=== PATIENT | male | born 1945 | race Caucasian/White ===

== ENCOUNTER → 2017-01-02 | Day surgery (SDC) | payer OTHER ==
[~2017-01-02] VITALS: Ht 188 cm; Wt 126.5 kg
[2017-01-02 06:49] VITALS: BP 140/92
[2017-01-02 10:52] VITALS: BP 143/63
== END | disposition home or self-care (01) ==
LOC: DS 06:03 → OR 07:30 → DS 07:30
PROVIDERS: Ophthalmology
PROC: 08RK3JZ Replacement of Left Lens with Synthetic Substitute, Percutaneous Approach (ICD-10-PCS; principal; 2017-01-02 07:30)
DX: H25.012 Cortical age-related cataract, left eye (principal); I10 Essential (primary) hypertension; M19.90 Unspecified osteoarthritis, unspecified site; E66.9 Obesity, unspecified; Z68.35 Body mass index [BMI] 35.0-35.9, adult; Z96.651 Presence of right artificial knee joint
CPT/HCPCS: C1780; J2001; J3010; J3490

== ENCOUNTER 2017-07-14 05:39 | Inpatient (IN) | payer OTHER ==
[~2017-07-14] VITALS: Ht 188 cm; Wt 127.0 kg
[2017-07-14 05:57] VITALS: BP 156/89
--- NOTE | 2017-07-14 14:08 | NUR ---
PT BROUGHT FROM OR. A/OX4. NO SIGN OF ACUTE DISTRESS. REPORT OF PAIN 10/10 IN LEFT KNEE, SHARP, CONTINUOUS, AGGRAVATED BY MOVEMENT. GIVEN PAIN MED, SEE MAR. SURGICAL INCISION TO LEFT KNEE COVERED BY CURLICS, GAUZE, AND PHIL BANDAGE, CDI, NO DRAINAGE. HEMOVAC TO LEFT KNEE WITHOUT SUCTION WITH 100 ML BLOODY DRAINAGE. S1S2 REGULAR RATE/RHYTHM ON TELE #34 NSR. PULSES +2 BUE/BLE, CAP REFILLS <3 SEC BUE/BLE, NO EDEMA. LUNG SOUNDS CTA ON 2LNC. CHEST EXPANSION SYMMETRICAL. NO COMPLAINTS OF SOB. BOWEL SOFT ROUND, NON-DISTENDED. BOWEL SOUNDS ACTIVE. SCHREIBER CATHETER INTACT, DRAINING CLEAR YELLOW URINE. IV FLUIDS FLOWING. BED IN LOW POSITION. FAMILY AT BEDSIDE. WILL CONTINUE TO MONITOR.
[2017-07-14] MEDS ORDERED: LOSARTAN POTASS25 M1 PO (14:29)
--- NOTE | 2017-07-14 14:47 | NUR ---
P.T. NOTES CPM APPLIED ON PATIENT SET AT 0 TO 60DEG, BONNIE DOUGLASS MADE AWARE AND TO REMOVE UNIT AT 2300. PATIENT MADE AWARE OF REMOTE CONTROL USE AND SAFETY. HE TOLERATED FIRST FEW REPS WITH NO SIGNFICANT C/O INCREASED PAIN. CPM SET UP.
[2017-07-14 15:11] VITALS: BP 160/71
[2017-07-14 15:24] LABS: BASOPHIL % 0.2 % (0-2); RED CELL DISTRIBUTION WIDTH 13.1 % (11.5-14.5)
[2017-07-14 15:39] LABS: CALCIUM 8.3 mg/dL (8.5-10.1); CARBON DIOXIDE 28.7 mmol/L (21-32); CHLORIDE SERUM 105 mmol/L (98-107); CREATININE SERUM 1.1 mg/dL (0.7-1.3); GLUCOSE SERUM 151 mg/dL (74-106); SODIUM SERUM 140 mmol/L (136-145)
[2017-07-14 15:40] LABS: microscopic required? YES; urine erythrocyte NEGATIVE (NEGATIVE)
[2017-07-14 15:48] LABS: PLATELET COUNT 129 x10^3mcL (130-400)
[2017-07-14 15:49] LABS: AMPHETAMINE QUAL UR NONE DETECTED (NEG <=1000)
[2017-07-14 15:53] LABS: CHOLESTEROL/HDL RATIO 4.3; MAGNESIUM 1.8 mg/dL (1.8-2.4); PHOSPHOROUS 3.6 mg/dL (2.5-4.9)
[2017-07-14 15:56] LABS: FREE T4 1.4 ng/dL (0.76-1.46); FREE THYROXINE INDEX 3.5 ug/dL (1.4-4.5); T4(THYROXINE) 8.9 ug/dL (4.7-13.3)
[2017-07-14 16:01] LABS: T3 TOTAL 1.27 ng/mL
[2017-07-14 17:41] VITALS: BP 149/75
--- NOTE | 2017-07-14 18:30 | NUR ---
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 PT ASYMPTOMATIC. DR. MOY NOTIFIED. WILL CONTINUE TO MONITOR.
--- NOTE | 2017-07-14 18:38 | NUR ---
PT LAYING IN BED. A/OX4. EATING DINNER. GIVEN PAIN MED FOR PAIN IN LEFT KNEE. SEE OCT. NO SIGN OF ACUTE DISTRESS. SANGUINOUS DRAINAGE TO HEMOVAC WITH OUTPUT 225ML. DRESSING TO INCISION CDI. CPM RUNNING. IV FLUIDS FLOWING. NO REPORT OF CHEST PAIN. BED IN LOW POSITION. CALL LIGHT WITHIN REACH. WILL CONTINUE TO MONITOR.
--- NOTE | 2017-07-14 19:06 | NUR ---
AOX4. FAMILY AT BEDSIDE. TELE #24, SINUS AIYANA WITH SECOND DEGREE AVB. LUNGS CLEAR AND UNLABORED ON NC @ 2L. PULSES PALPABLE, NO EDEMA. BOWEL SOUNDS ACTIVE. SCHREIBER PRESENT DRAINING CLEAR YELLOW. CPM @ 60 DEGREES TO LEFT LEG, WILL REMOVE AT 2300. INCISION TO LEFT KNEE COVERED BY PHIL WRAP. HEMO VAC PRESENT DRAINING SANGUINEOUS FLUID. NS @ 100 ML/HR TO RIGHT FA, NO REDNESS OR SWELLING. BED IN LOW POSITION, CALL LIGHT IN REACH. INSTRUCTED TO CALL FOR ASSISTANCE.
[2017-07-14 22:23] VITALS: BP 117/57
--- NOTE | 2017-07-15 03:45 | NUR ---
RESTING WITH EYES CLOSED. AWAKENS EASILY TO VERBAL STIMULI. NO ACUTE DISTRESS NOTED. WILL CONTINUE TO MONITOR.
[2017-07-15 05:05] VITALS: BP 122/53
--- NOTE | 2017-07-15 06:09 | NUR ---
NO ACUTE CHANGES DURING SHIFT. WILL ENDORSE TO ONCOMING RN.
--- NOTE | 2017-07-15 07:20 | NUR ---
RECEIVED PT IN NO ACUTE DISTRESS. RESP EVEN AND UNLABORED ON 2L NC. NO SOB NOTED. C/O DISCOMFORT L KNEE BUT TOLERABLE. DRESSING AND PHIL WRAP TO L KNEE C/D/I. PULSES PALPABLE ON ALL EXTREMITIES. PT ABLE TO WIGGLE TOES, SENSATION INTACT. IVF INFUSING. SCHREIBER CATH DRAINING YELLOW URINE TO GRAVITY. HEMOVAC DRAINING SANGUINEOUS OUTPUT, 275 ML OUT. BED IN LOW POSITION, CALL LIGHT WITHIN REACH. WILL CONTINUE TO MONITOR.
[2017-07-15 08:04] LABS: BASOPHIL % 0.2 % (0-2); RED CELL DISTRIBUTION WIDTH 13.3 % (11.5-14.5)
[2017-07-15 08:10] LABS: CALCIUM 7.9 mg/dL (8.5-10.1); CARBON DIOXIDE 27.2 mmol/L (21-32); CHLORIDE SERUM 105 mmol/L (98-107); CREATININE SERUM 1.4 mg/dL (0.7-1.3); GLUCOSE SERUM 115 mg/dL (74-106); MAGNESIUM 1.8 mg/dL (1.8-2.4); PHOSPHOROUS 3.9 mg/dL (2.5-4.9); POTASSIUM SERUM 4.9 mmol/L (3.5-5.1); SODIUM SERUM 138 mmol/L (136-145)
[2017-07-15 08:13] LABS: PLATELET COUNT 118 x10^3mcL (130-400)
[2017-07-15 08:36] VITALS: BP 126/66
[2017-07-15 10:25] VITALS: BP 122/46
--- NOTE | 2017-07-15 11:31 | NUR ---
PT SITTING UP IN RECLINER CHAIR. NO ACUTE DISTRESS. C/O MILD L KNEE DISCOMFORT BUT TOLERABLE AT THIS TIME. IVF INFUSING. FAMILY AT BEDSIDE. WILL CONTINUE TO MONITOR.
[2017-07-15 14:00] VITALS: BP 105/42
--- NOTE | 2017-07-15 15:34 | NUR ---
PHYSICAL THERAPY DAILY NOTES CO-SIGN All documentation done by the Professor Of Art History for 07/15/17 has been reviewed. I agree with the documentation. I CONCUR W/GAS SPECIALIST; CONT PER TX PLAN Reviewed/Co-Signed by: Michell Meneses V PT Documentation Done by: DEBORA TRUONG GAS SPECIALIST
--- NOTE | 2017-07-15 15:38 | NUR ---
HEMOVAC REMOVED BY DR. ANTHONY.
[2017-07-15 18:27] VITALS: BP 116/45
--- NOTE | 2017-07-15 18:44 | NUR ---
SCHREIBER CATHETER DC'D ORDERED, CATHETER TIP INTACT. PT TOLERATED WELL. IV TO RFA INFILTRATED, DC'D INTACT. NEW IV STARTED ON RFA 20G. BED IN LOW POSITION, CALL LIGHT WITHIN REACH. FAMILY AT BEDSIDE. WILL ENDORSE TO INCOMING SHIFT.
--- NOTE | 2017-07-15 20:00 | NUR ---
RECEIVED PT IN BED, ALERT AND ORIENTED. RESP. EVEN AND UNLABORED. LUNGS SOUNDS CLEAR BILAT. 02 AT 2L/MIN VIA NC, SAT. WELL. NO DISTRESS NOTED. SB /SR WITH 2DEGREE AVB ON THE MONITOR,DENIES CHEST PAIN OR PRESSURE. LT KNEE INCISION WITH PHIL WRAP, DRY AND INTACT. WITH CPM AT 70 DEGREE, MAVIS. WELL. ABLE TO MOVE EXTS. PEDAL PULSES TO BLE PALPABLE. IVF, NS AT 100ML/HR, INTACT AND INFUSING VIA RFA, SITE CLEAR. ASSISTED WITH HS CARE. CALL LIGHT WITHIN REACH. WILL CONTINUE TO MONITOR.
--- NOTE | 2017-07-15 21:30 | NUR ---
COMPLAINING OF LT KNEE PAIN, 03/10 , MEDICATED WITH DILAUDID 1MG IV ORDERED. WILL CONTINUE TO MONITOR.
[2017-07-15 21:32] VITALS: BP 96/54
--- NOTE | 2017-07-15 22:36 | NUR ---
TEMP. SHOWS 100.6, COOLING MEASURES APPLIED, TYLENOL 650MG PO GIVEN . WILL CONTINUE TO MONITOR.
--- NOTE | 2017-07-15 22:41 | NUR ---
PT STATES PAIN RELIEF. RESTING QUIETLY. WILL CONTINUE TO MONITOR.
--- NOTE | 2017-07-16 01:24 | NUR ---
CPM MACHINE REMOVED FROM PT AT 2300 PER REPORT. LT KNEE SUPPORTED WITH PILLOWS. KEPT COMFORTABLE. NEW IV SITE RESTARTED ON RT HAND WITH 22G ANGIO. IVF INFUSING AT THIS TIME. AFEBRILE. TEMP RECHECK SHOWS 98.9. WILL CONTINUE TO MONITOR.
--- NOTE | 2017-07-16 02:40 | NUR ---
COMPLAINED OF LT KNEE INCISION PAIN, 6/10, MEDICATED WITH NORCO PO ORDERED. WILL CONTINUE TO MONITOR.
--- NOTE | 2017-07-16 06:33 | NUR ---
AFEBRILE AND VITAL SIGNS STABLE. SR ON THE MONITOR, DENIES CP OR ANY DISCOMFORT AT THIS TIME.RESP. EVEN AND UNLABORED. NO DISTRESS NOTED. IVF INTACT AND INFUSING WELL, SITE CLEAR. LT KNEE DRESSING DRY AND INTACT. NO COMPLAINTS OF PAIN NOTED AT THIS TIME. VOIDING FREELY VIA URINAL. NO BM NOTED. WILL ENDORSE TO INCOMING NURSE.
[2017-07-16 06:34] VITALS: BP 126/54
[2017-07-16 06:58] LABS: ALKALINE PHOSPHATASE 70 U/L (46-116); ALT/SGPT 18 U/L (16-63); AST/SGOT 16 U/L (15-37); BILIRUBIN TOTAL 0.9 mg/dL (0.20-1.00); CALCIUM 7.6 mg/dL (8.5-10.1); CHLORIDE SERUM 106 mmol/L (98-107); CREATININE SERUM 1.3 mg/dL (0.7-1.3); GLUCOSE SERUM 118 mg/dL (74-106); PHOSPHOROUS 2.3 mg/dL (2.5-4.9); POTASSIUM SERUM 4.3 mmol/L (3.5-5.1); SODIUM SERUM 139 mmol/L (136-145)
[2017-07-16 06:59] LABS: ALBUMIN 2.6 g/dL (3.4-5.0); TOTAL PROTEIN, SERUM 5.8 g/dL (6.4-8.2)
[2017-07-16 07:23] LABS: RED CELL DISTRIBUTION WIDTH 12.4 % (11.5-14.5)
[2017-07-16 07:25] LABS: PLATELET COUNT 104 x10^3mcL (130-400)
--- NOTE | 2017-07-16 07:42 | NUR ---
AT 0710 - RECEIVED PATIENT FROM NIGHT NURSE. PATIENT SLEEPING. RESPIRATIONS REGULAR. MONITOR SHOWING SINUS BRADYCARDIA; RATE 50'S. IV INFUSING NS AT 100ML/HR. DRESSING TO L KNEE - DRY AND INTACT. CPM MACHINE OFF AT THIS TIME. CONTINUING TO MONITOR.
[2017-07-16 08:37] VITALS: BP 119/59
--- NOTE | 2017-07-16 09:06 | NUR ---
AT 0835 - SEEN BY DR SUTHERLAND DURING MORNING ROUNDS. MEDICAL TEAM DOCTORS, TOMÁS BRAXTON AND MYSELF PRIMARY NURSE ALSO PRESENT. DR SUTHERLAND SPOKE WITH PATIENT ABOUT PLAN OF CARE. ALSO SPOKE WITH PATIENT ABOUT PLAN UPON DISCHARGE - HOME HEALTH. DC DAY TO BE DETERMINED BY DR ANTHONY. AT 0845 - MEDICATED WITH NORCO PER EMAR. CPM MACHINE OFF AT THIS TIME. SPOKE WITH PHYSICAL THERAPY - THEY WILL RESTART MACHINE AFTER PHYSICAL THERAPY THIS MORNING. PATIENT ENCOURAGED TO USE INSENTIVE SPIROMETER.
--- NOTE | 2017-07-16 10:39 | NUR ---
PATIENT REPORTS THAT NORCO ADMINISTERED EARLIER HAS NOT BEEN EFFECTIVE IN RELEIVING PAIN IN L KNEE. NOW GIVEN IV DILAUDID PER EMAR, PRIOR TO PHYSICAL THERAPY. PATIENT STATUS CHANGED TO MED-SURG AND PATIENT TAKEN OFF CARDIAC MONITORING.
[2017-07-16 11:16] LABS: BAND NEUTROPHIL 3 % (0-10); BASOPHIL 0 % (0-2); MONOCYTE 6 % (0-7); SEGMENTED NEUTROPHILS 78 % (37-75)
--- NOTE | 2017-07-16 13:39 | NUR ---
PATIENT BACK IN BED. HAS ALSO AMBULATED WITH PT USING WALKER. NO C/O PAIN AT THIS TIME.
--- NOTE | 2017-07-16 16:10 | NUR ---
AT 1410 - SEEN BY DR ANTHONY. DRESSING CHANGED BY DR. Becerra KNEE INCISION WITH JUDITH COVERED WITH GAUZE AND WRAPPED IN PHIL BANDAGE. PATIENT MAY BE DISCHARGED HOME TOMORROW. WILL NEED CPM FOR 2 WEEKS AT HOME. AT 1515 - CPM SET UP TO L KNEE BY PT. FLEXION AT 80.
[2017-07-16 17:07] VITALS: BP 132/56
--- NOTE | 2017-07-16 17:40 | NUR ---
TEMP 100.1 PATIENT GIVEN TYLANOL PER EMAR. DR NOE NOTIFIED.
--- NOTE | 2017-07-16 18:26 | NUR ---
PATIENT TOLERATING CPM. IV INFUSING NS AT 100ML/HR. VOIDING IN URINAL. EATING WELL. PAIN APPEARS UNDER CONTROL AT THIS TIME. WILL ENDORSE CARE TO NIGHT NURSE.
--- NOTE | 2017-07-16 19:30 | NUR ---
PT FOUND IN BED, AAO X4, VERBALLY RESPONSIVE. LUNGS BILATERALLY CLEAR, NO C/O SOB. DENY CHEST PAIN. BOWEL SOUNDS IN ALL 4 QUADRANTS. NO DISTENTION/TENDERNESS NOTED. +1 EDEMA TO LLE. ON CPM, 2ND DAY POST SURGERY. DENIES PAIN, TOLERATING WELL. IVF TO RFA, NO LEAKING/INFILTRATION NOTED. ALL ADLS ASSIST, CALL LIGHT IN REACH, WILL CONTINUE TO MONITOR.
[2017-07-16 21:44] VITALS: BP 111/59
--- NOTE | 2017-07-17 05:17 | NUR ---
PT HAS TEMP OF 100.6, TYLENOL PO GIVEN. COOLING MEASURES PROVIDED. WILL CONTINUE TO MONITOR.
[2017-07-17 05:47] VITALS: BP 120/52
[2017-07-17 05:58] VITALS: BP 140/59
--- NOTE | 2017-07-17 07:20 | NUR ---
PATIENT RECEIVED AND SEEN. PATIENT AAOX4. APPEARS CALM. PATIENT IS ON CPM MACHINE IN LEFT LEG. RIGHT LEG HAS SCDS IN PLACE. IV APPEARS PATENT AND WNL. PATIENT IS MED SURG, NO TELE. DENIES CHEST PAIN. RESPIRATIONS EVEN AND UNLABORED ON ROOM AIR. NO SIGNS OF RESPIRATORY DISTRESS. CALL LIGHT WITHIN REACH. NO SIGNS OF ACUTE DISTRESS AT THIS TIME. WILL CONTINUE TO MONITOR.
[2017-07-17 09:23] VITALS: BP 116/46
[2017-07-17] MEDS ORDERED: NOR10T PO (10:29)
--- NOTE | 2017-07-17 14:15 | NUR ---
PHYSICAL THERAPY DAILY NOTES CO-SIGN All documentation done by the Shipyard Painter Helper for 07/16/17 has been reviewed. I agree with the documentation. I CONCUR W/SENIOR ASSET MANAGER NOTE Reviewed/Co-Signed by: Michell Meneses V PT Documentation Done by: DEBORA TRUONG PTA
[2017-07-17 17:28] VITALS: BP 128/53
--- NOTE | 2017-07-17 17:54 | NUR ---
PATIENT RECEIVED TYLENOL FOR ELEVATED TEMPERATURE AND COOLING MEASURES. ICE WAS PLACED AROUND ARM PITS. PATIENT BLANKET REMOVED. PATIENT TOLERATING COOLING MEASURES WELL. PHYSICIAN NOTIFIED ABOUT TEMPERATURE. WILL MONITOR FOR NEW ORDERS.
--- NOTE | 2017-07-17 19:30 | NUR ---
PT FOUND IN BED A/O X4, VERBALLY RESPONSIVE. PT ON ROOM AIR, PO2 97%. PT HAS DIMINISHED BILATERAL BREATH SOUNDS TO LOWER LOBES, EDUCATION PROVIDED ON INCENTIVE SPIROMETER USE. NO C/O SOB NOTED. DENIES CHEST PAIN AT THIS TIME. BOWEL SOUNDS PRESENT IN ALL 4 QUADRANTS, SOME DISTENTION NOTED, NO C/O TENDERNESS. IV TO RFA, 100 ML/H, NO LEAKING/INFILTRATION NOTED. PATIENT ON CPM MACHINE AT THIS TIME. NO C/O PAIN OR DISCOMFORT. ALL NEEDS MET, BED IN LOWEST POSITION, CALL LIGHT IN REACH, WILL CONTINUE TO MONITOR.
--- NOTE | 2017-07-17 19:32 | NUR ---
REPORT GIVEN TO [facility] NURSE. PATIENT IS AAOX4. APPEARS CALM. NO SIGNS OF ACUTE DISTRESS AT THIS TIME. IV PATENT AND INFUSING WELL. CPM IN PLACE. SCD IN PLACE. ALL SAFETY MEASURES IN PLACE. FAMILY AT BEDSIDE.
[2017-07-17 21:52] VITALS: BP 123/73
--- NOTE | 2017-07-18 05:26 | NUR ---
PT ASLEEP IN BED, NO ACUTE DISTRESS NOTED AT THIS TIME. IV TO RFA, 100 ML/HR. NO LEAKING/INFILTRATION NOTED. CPM TO LEFT LEG, NO C/O DISCOMFORT. ALL NEEDS MET, BED IN LOWEST POSITION, CALL LIGHT IN REACH, WILL CONTINUE TO MONITOR
[2017-07-18 05:54] VITALS: BP 121/60
[2017-07-18 05:55] LABS: BASOPHIL % 0.3 % (0-2)
[2017-07-18 06:28] LABS: CALCIUM 8.1 mg/dL (8.5-10.1); CARBON DIOXIDE 25.1 mmol/L (21-32); CHLORIDE SERUM 107 mmol/L (98-107); CREATININE SERUM 1.2 mg/dL (0.7-1.3); GLUCOSE SERUM 105 mg/dL (74-106); MAGNESIUM 2.2 mg/dL (1.8-2.4); PHOSPHOROUS 2.4 mg/dL (2.5-4.9); POTASSIUM SERUM 4.1 mmol/L (3.5-5.1); SODIUM SERUM 139 mmol/L (136-145)
[2017-07-18 06:41] LABS: PLATELET COUNT 107 x10^3mcL (130-400)
--- NOTE | 2017-07-18 07:30 | NUR ---
PATIENT IS IN BED, AWAKE, ALERT AND ORIENTED. IVF INFUSING WELL SITE PATENT. LEFT KNEE NOTED WITH PHIL WRAP IN PLACE. LEFT LEG IN CPM PLACED ON BY [facility] NURSE AT 0600 TODAY. DENIES ANY H/A OR PAIN AT THIS TIME. INSTRUCTED TO USE CALL LIGHT FOR ASSIST. WILL CONTINUE TO MONITOR.
--- NOTE | 2017-07-18 09:00 | NUR ---
PATIENT'S PLAN OF CARE WAS DISCUSSED AND REVIEWED WITH TOBACCO CLOTH RECLAIMER:CASSIE HUNTER
--- NOTE | 2017-07-18 09:00 | NUR ---
DR DUARTE AND MEDICAL TEAM INTO SEE PATIENT AND DISCUSS PLAN OF CARE.
[2017-07-18 09:46] VITALS: BP 132/62
[2017-07-18 13:17] VITALS: BP 118/59
--- NOTE | 2017-07-18 14:23 | NUR ---
PATIENT HAS BEEN OOB WITH PHYSICAL THERAPY TO CHAIR. LEFT ANKLE AND LOWER LEG REMAIN EDEMATOUS. PULSES PALABLE. PATIENT IS BACK IN BED WITH LEFT LEG ELEVATED ON PILLOWRS BY PHYSICAL THERAPY. PER PATIENT HIS PAIN LEVEL IS 6/10. MEDICATED WITH NORCO PO ORDERED. WILL CONTINUE TO MONITOR. JUDITH ON LEFT KNEE SURGICAL SITE WITH DRESSING AND PHIL WRAP C/D/I. FAMILY MEMBER AT BEDSIDE. WILL CONTINUE TO MONITOR.
--- NOTE | 2017-07-18 16:18 | NUR ---
PHYSICAL THERAPY DAILY NOTES CO-SIGN All documentation done by the Survey Research Manager for 07/18/17 has been reviewed. I agree with the documentation. Reviewed/Co-Signed by: Jazmin Alarcon PT Documentation Done by:LIZA GRIMM TUGBOAT DISPATCHER POC REVIEWED W/ TUGBOAT DISPATCHER; CPM NOT APPLIED AFTER P.T. TX DUE TO PENDING XR (L)ANKLE, NURSE AWARE.
[2017-07-18 17:29] VITALS: BP 115/53
--- NOTE | 2017-07-18 17:36 | NUR ---
PATIENT IS IN BED WITH FAMILY MEMBERS AT BEDSIDE. DR ANTHONY WAS INTO SEE PATIENT. PER PATIENT HIS LEFT LEG PAIN HAS SUBSIDED AFTER NORCO WAS GIVEN. LEFT LEG UP ON PILLOW. SWELLING STILL NOTED, PER DR ANTHONY LEFT ANKLE X-RAY WAS NEGATIVE. NO ACUTE DISTRESS NOTED. WILL CONTINUE TO MONITOR.
--- NOTE | 2017-07-18 18:41 | NUR ---
I HAVE REVIEWED THE DATA COLLECTION BY CHRIS (NAME):CASSEI HUNTER ENTERED ON (DATE/TIME): I CONCUR WITH THE DATA AND ANY EXCEPTIONS OR COMMENTS ARE LISTED BELOW:
--- NOTE | 2017-07-18 20:03 | NUR ---
RECEIVED PT FROM PREVIOUS SHIFT NURSE. PT AOX4. DENIES CP/PRESSURE. MED SURG PT. PULSES PRESENT, LLE 2+ EDEMA NOTED. LUNG SOUNDS CLEAR, ON RA. DENIES SOB/DIFFICULTY BREATHING. BOWEL SOUNDS ACTIVE. VOIDS FREELY, USES URINAL. LLE WEAKNESS. L. KNEE DRESSING IN PLACE WITH PHIL WRAP, CDI. IV IN RFA, INTACT AND PATENT. BED IN LOWEST POSITION. CALL LIGHT WITHIN REACH. WILL CONTINUE TO MONITOR.
[2017-07-18 20:49] VITALS: BP 134/52
--- NOTE | 2017-07-19 02:00 | NUR ---
PT RESTING IN BED. RR EVEN AND UNLABORED. NO ACUTE DISTRESS NOTED. CALL LIGHT WITHIN REACH. BED IN LOWEST POSITION. WILL CONTINUE TO MONITOR.
[2017-07-19 05:06] VITALS: BP 134/50
--- NOTE | 2017-07-19 06:05 | NUR ---
CPM MACHINE PLACED ON PT. TOLERATING WELL. INFORMED PT IF NOT ABLE TO TOLERATE, TO USE CALL LIGHT. WILL CONTINUE TO MONITOR.
[2017-07-19 06:16] LABS: BASOPHIL % 0.5 % (0-2); RED CELL DISTRIBUTION WIDTH 12.9 % (11.5-14.5)
[2017-07-19 06:20] LABS: CALCIUM 8.1 mg/dL (8.5-10.1); CARBON DIOXIDE 24.3 mmol/L (21-32); CHLORIDE SERUM 107 mmol/L (98-107); CREATININE SERUM 1.2 mg/dL (0.7-1.3); GLUCOSE SERUM 106 mg/dL (74-106); POTASSIUM SERUM 4.4 mmol/L (3.5-5.1); SODIUM SERUM 139 mmol/L (136-145)
[2017-07-19 07:11] LABS: PLATELET COUNT 129 x10^3mcL (130-400)
--- NOTE | 2017-07-19 07:50 | NUR ---
RECEIVED PT IN BED ALERT AND ORIENTED X4. S/P L TOTAL KNEE REPLACEMENT. DRESSING TO L KNEE CDI. CPM IN USE AT 90 DEGREES, PT TOLERATING WELL. DENIES PAIN AT THIS TIME. 2+ EDEMA NOTED TO LLE. PT ABLE TO REPOSITION WITH USE OF TRAPEZE IN BED. INSTRUCTED TO USE CALL LIGHT WHEN IN NEED OF ANY ASSISTANCE.
[2017-07-19 10:00] VITALS: BP 129/60
[2017-07-19] MEDS ORDERED: LEVAQUIN750 MG PO (11:29)
[2017-07-19] MEDS ORDERED: LAC PO (11:29)
[2017-07-19] MEDS ORDERED: COL100 PO (13:49)
--- NOTE | 2017-07-19 14:25 | NUR ---
PT SITTING UP IN CHAIR, GOT UP WITH PT, NORCO PO GIVEN FOR PTS REPORT OF PAIN AND FOR COMFORT PT WILL SOON BE DISCHARGED HOME.
--- NOTE | 2017-07-19 14:57 | NUR ---
IV DC'D. DISCHARGE INSTRUCTIONS AND PRESCRIPTIONS GIVEN AND EXPLAINED TO PT, PT VERBALIZED UNDERSTANDING. ASSISTED PT TO TRANSFER TO [facility], DISCHARGED HOME WITH HOME HEALTH ACCOMPANIED BY CLINICAL CYTOPATHOLOGIST AND .
--- NOTE | 2017-07-19 16:12 | NUR ---
PHYSICAL THERAPY DAILY NOTES CO-SIGN All documentation done by the Backup Sawyer for 07/19/17 has been reviewed. I agree with the documentation. Reviewed/Co-Signed by: Jazmin Alarcon PT Documentation Done by:LIZA GRIMM HOSPITAL MEDICAL ASSISTANT POC REVIEWED W/ HOSPITAL MEDICAL ASSISTANT; ANTALGIC GAIT; (L)ANKLE SWELLING; PROGRESSING W/ GAIT ENDURANCE & FUNC MOBILITY; (L)KNEE ROM 8^92 degrees FLEXION; WILL BENEFIT W/ P.T. AFTER ACUTE STAY; Pt REPORTS (L)ANKLE DISCOMFORT AFTER CPM MACHINE WAS RE APPLIED THIS AM BY NURSE STAFF, NURSE STAFF REMOVED CPM MACHINE PER PATIENT REQUEST; NO NOTED DISCOLORATION (L) ANKLE; WAS GIVEN HAND OUT ON PROPER CAR TRANSFER, SIMULATED TRANSFER DONE. 07/18/17 XR (L)ANKLE:OSTEOPENIA, NO FX OR MALALIGNMENT.
== END 2017-07-19 14:57 | disposition home health service (06) | DRG 469 ==
LOC: DU 05:39 → MU 05:39 → DU 14:57 → MU 07-16 10:46
PROVIDERS: Family Medicine Sports Medicine; Neuromusculoskeletal Medicine, Sports Medicine; ADMIT Family Medicine
PROC: 0SRD069 Replacement of Left Knee Joint with Oxidized Zirconium on Polyethylene Synthetic Substitute, Cemented, Open Approach (ICD-10-PCS; principal; 2017-07-14 07:30)
DX: M17.12 Unilateral primary osteoarthritis, left knee (principal); N17.0 Acute kidney failure with tubular necrosis; E43 Unspecified severe protein-calorie malnutrition; M65.9 Synovitis and tenosynovitis, unspecified; I10 Essential (primary) hypertension; R00.1 Bradycardia, unspecified; E66.9 Obesity, unspecified; Z68.35 Body mass index [BMI] 35.0-35.9, adult; Z88.8 Allergy status to other drugs, medicaments and biological substances; Z83.3 Family history of diabetes mellitus; E83.51 Hypocalcemia; D64.9 Anemia, unspecified
CPT/HCPCS: 83880; 84439; 90658; 90732; 94150; 97110-GP; 97116-GP; 97139; 97530-GP; C1713; C1776; J0690; J1170; J1650; J1956; J2250; J2270; J2405; J2704; J3010; J7030; J7120; Q0092